=== PATIENT | male | born 1950 | race Caucasian/White ===

== ENCOUNTER 2017-07-30 11:12 | Inpatient (IN) | payer BC ==
[~2017-07-30] VITALS: Ht 172.7 cm; Wt 80.3 kg
[~2017-07-30 11:12] MED LIST: ASPIRIN E.C. 8181 MG PO; GLUCOPHAGE1000 MG PO; LIPITOR 40MG TA40 MG PO; PLAVIX 75MG TAB75 MG PO; PRINIVIL10 MG PO; PRINIVIL20 MG PO; TOPROL XL 25MG25 MG PO
[2017-07-30 11:51] LABS: BASO # 0.1 (0.0-0.2); BASO % 0.7 % (0.0-2.0); EOS # 0.1 (0.0-0.7); EOS % 1.3 % (0-4.0); GRAN # 4.5 (1.4-6.5); GRAN % 66.3 % (42.2-75.2); HEMATOCRIT 41.6 % (42.0-52.0); HEMOGLOBIN 12.9 g/dl (13.5-18.0); LYMPH # 1.4 (1.2-3.4); LYMPH % 20.6 % (20.0-51.0); MEAN CELL VOLUME 104 fl (80.0-100.0); MEAN CORPUSCULAR HEMOGLOBIN 32 pg (27.0-31.0); MEAN CORPUSCULAR HGB CONC 31 g/dl (33.0-37.0); MEAN PLATELET VOLUME 9.3 fl (7.4-10.4); MONO # 0.7 (0.1-0.6); MONO % 10.8 % (1.7-9.3); PLATELET COUNT 212 K/mm3 (130-400); RED BLOOD COUNT 3.99 M/mm3 (4.20-5.60); REDCELL DISTRIBUTION WIDTH-CV 16.7 % (11.5-14.5); WHITE BLOOD COUNT 6.8 K/mm3 (4.8-10.8)
[2017-07-30] MEDS ORDERED: ACTOS30 MG PO (11:57)
[2017-07-30] MEDS ORDERED: ATROVENT I0.2 MG/1 M IH (11:58)
[2017-07-30 11:59] LABS: INR 1.1 (0.8-3.0); PROTHROMBIN TIME 11.7 SECONDS (9.7-12.8)
[2017-07-30 12:02] LABS: PARTIAL THROMBOPLASTIN TIME 34.8 SECONDS (26.0-37.0)
[2017-07-30 12:04] LABS: ADJUSTED CALCIUM 9.2 mg/dL (8.4-10.2); ALANINE AMINOTRANSFERASE 25 U/L (21-72); ALBUMIN 3.7 gm/dL (3.5-5.0); ALKALINE PHOSPHATASE 53 U/L (50-136); ANION GAP 9 mmol/L (7-16); BILIRUBIN,TOTAL 0.7 mg/dL (0.0-1.0); BLOOD UREA NITROGEN 15 mg/dL (9-20); CARBON DIOXIDE 29 mmol/L (22-30); CHLORIDE 102 mmol/L (98-107); CREATININE, serum 0.78 mg/dL (0.66-1.25); GLUCOSE 90 mg/dL (74-106); POTASSIUM 4.4 mmol/L (3.4-5.0); SODIUM 140 mmol/L (137-145); TOTAL PROTEIN 6.8 gm/dL (6.4-8.2)
[2017-07-30 12:13] LABS: ARTERIAL BLD GAS O2 SATURATION 90.2 % (92-100); ARTERIAL BLD GAS TCO2 CT 31.7; ARTERIAL BLOOD GAS BASE EXCESS 1.8 (-2-2); ARTERIAL BLOOD GAS HCO3 29.8 meq/L (22-26); ARTERIAL BLOOD GAS PO2 63.7 mmHg (80-100)
[2017-07-30 12:14] LABS: ALLEN TEST YES; ALLENS TEST RESULT PASS; ATS? YES
[2017-07-30 12:16] LABS: B-TYPE NATRIURETIC PEPTIDE 1910 pg/mL (0-125)
[2017-07-30 12:18] LABS: TROPONIN-I < 0.012 ng/mL (0.000-0.034)
[2017-07-30 14:16] VITALS: BP 145/77; PULSE 67; TEMP 98.2
[2017-07-30 16:15] VITALS: BP 136/99; PULSE 85; TEMP 98
[2017-07-30 20:27] VITALS: BP 132/60; PULSE 69; TEMP 98.7
[2017-07-30 22:53] VITALS: BP 151/65; PULSE 84; TEMP 98.9
[2017-07-31] VITALS (11 sets, daily range): BP systolic 96–147; BP diastolic 58–112; PULSE 64–92; TEMP 97.5–99.3
[2017-08-01] VITALS (8 sets, daily range): BP systolic 112–140; BP diastolic 48–77; PULSE 63–87; TEMP 98–99.4
[2017-08-02 03:13] VITALS: BP 123/53; PULSE 73; TEMP 97.7
[2017-08-02 07:39] LABS: CALCIUM 9.6 mg/dL (8.4-10.2); CREATININE, serum 0.76 mg/dL (0.66-1.25); MAGNESIUM 1.6 mg/dL (1.6-2.3); POTASSIUM 4.4 mmol/L (3.4-5.0)
[2017-08-02 08:33] VITALS: BP 114/39; PULSE 76; TEMP 98
[2017-08-02 10:08] LABS: ARTERIAL BLD GAS O2 SATURATION 88.7 % (92-100); ARTERIAL BLD GAS TCO2 CT 41.7; ARTERIAL BLOOD GAS BASE EXCESS 11.2 (-2-2); ARTERIAL BLOOD GAS HCO3 39.6 meq/L (22-26); ARTERIAL BLOOD GAS PHT 7.38 C (7.35-7.45); ARTERIAL BLOOD GAS PO2 56.5 mmHg (80-100); ARTERIAL BLOOD GAS PO2T 56.5 (80-100); ARTERIAL BLOOD GAS pH 7.38 (7.35-7.45); OXYHEMOGLOBIN 87.2 %
[2017-08-02 10:10] LABS: ATS? YES
[2017-08-02 12:40] VITALS: BP 132/68; PULSE 62; TEMP 97.6
[2017-08-02] MEDS ORDERED: STIOLTO RESPIMAT4 GM IH (14:10)
== END 2017-08-02 15:35 | disposition home or self-care (01) | DRG 191 ==
LOC: COL.ER 11:12 → MEDICAL 12:35
PROVIDERS: Emergency Medicine; Internal Medicine; Internal Medicine Pulmonary Disease
DX: J44.1 Chronic obstructive pulmonary disease with (acute) exacerbation (principal); E87.4 Mixed disorder of acid-base balance; I10 Essential (primary) hypertension; R68.84 Jaw pain; E11.9 Type 2 diabetes mellitus without complications; I25.10 Atherosclerotic heart disease of native coronary artery without angina pectoris; F17.210 Nicotine dependence, cigarettes, uncomplicated; Z95.5 Presence of coronary angioplasty implant and graft
CPT/HCPCS: 99231-AI; 99232-AI; 99239; A9502; J1650; J1815; J1940; J2785; J7512

== ENCOUNTER → 2017-08-26 | Outpatient (CLI) | payer BC ==
[~2017-08-26] MED LIST changes: +ACTOS30 MG PO; +ATROVENT I0.2 MG/1 M IH; +STIOLTO RESPIMAT4 GM IH
== END ==
LOC: COL.PUL 10:00
DX: R09.02 Hypoxemia (principal); Z87.891 Personal history of nicotine dependence